=== PATIENT | female | born 1990 | race Hispanic/Latino ===

== ENCOUNTER 2018-04-03 17:02 | Emergency (ER) | payer BC ==
[2018-04-03] MEDS ORDERED: ALBUTEROL 2.5 MG/3 ML NEB SOL ONE (17:23)
[2018-04-03] MEDS ORDERED: IPRATROPIUM BROM 0.5MG/2.5ML ONE (17:24)
[2018-04-03 19:00] LABS: Protime INR 0.98
[2018-04-03 19:02] LABS: Absolute Lymphocytes (CBC) 1.6 K/uL (0.7-4.9); Absolute Monocytes 0.4 K/uL (0.1-1.3); Absolute Neutrophil 4.6 K/uL (1.8-8.0); Basophils % 0.6 % (0-1.3); Eosinophils % 0.3 % (0-4.4); Hematocrit 35.2 % (36.0-45.0); Lymphocytes % 24.1 % (15.3-44.8); MCH 31.4 pg (27.0-35.0); MCV 87.8 fL (80-100); MPV 9.6 fL (7.6-11.3); Monocytes % 6.5 % (3.3-12.3); RBC Red Blood Cell Count 4.01 M/uL (3.86-4.86)
[2018-04-03 19:07] LABS: Glucose Level 118 mg/dL (65-120)
[2018-04-03 19:13] LABS: ALT/SGPT 12 IU/L (10-60); AST/SGOT 20 IU/L (10-42); Albumin 3.4 g/dL (3.2-5.5); Alkaline Phosphatase 67 IU/L (42-121); BUN Blood Urea Nitrogen 9 mg/dL (6-20); Bilirubin Direct < 0.1 mg/dL (0-0.2); Bilirubin Total 0.2 mg/dL (0.3-1.2); Creatine Phosphokinase 50 IU/L (22-269); Magnesium 1.6 mg/dL (1.8-2.5); Protein, Total 6.9 g/dL (6.0-8.3)
[2018-04-03 19:17] LABS: CKMB Creatine Kinase MB 1.1 ng/ml (0.3-4.0)
[2018-04-03 19:18] LABS: Bicarbonate 22 mEq/L (21-31); Sodium Level 136 mEq/L (135-145)
--- NOTE | 2018-04-03 19:49 | RAD REPORT ---
EXAM DESCRIPTION: CT - Chest For Pe Angio - 04/03/2018 7:41 pm CLINICAL HISTORY: Shortness of breath for 1 hour. Chest pain COMPARISON: None. TECHNIQUE: Dynamically enhanced axial 3 mm thick images of the chest were obtained during administra tion of <100> mL Isovue 370 IV contrast. Coronal and oblique reconstruction images were generated and reviewed. Exam utilizes a protocol for optimal evaluation of pulmonary arterial tree. Maximum intensity projections 3D imaging was utilized All CT scans are performed using dose optimization technique as appropriate and may include automated exposure control or mA/KV adjustment according to patient size. FINDINGS: A pulmonary embolus is not seen. A thoracic aortic aneurysm is not noted. A pleural effusion is not seen. A pericardial effusion is not seen. A lung consolidation is not present. IMPRESSION: Negative for a pulmonary embolism.
[2018-04-03] MEDS ORDERED: METHYLPREDNISOLONE 125 MG INJ ONE (20:05)
[2018-04-03] MEDS ORDERED: POTASSIUM 25 MEQ EFFERV TAB ONE (20:05)
[2018-04-03] MEDS ORDERED: MAGNESIUM SULFATE 1 gm IVPB 1 GM/100 ML BAG IV ONE (20:05)
[2018-04-03 20:19] LABS: Urine Blood NEGATIVE (NEG); Urine Glucose NEGATIVE (NEG); Urine Protein NEGATIVE (NEG); Urine pH 8.5 (5.0-7.0)
[2018-04-03 20:34] LABS: Urine Amorphous Sediment 1+ /HPF (NONE SEEN); Urine Bacteria <20 /HPF (<20); Urine Culture Reflex Order NOT NEEDED; Urine RBC <5 /HPF (NONE SEEN)
--- NOTE | 2018-04-03 20:48 | ER ---
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 Patient reports SOB is aj not resolved with asthma inhaler. No wheezes noted at this time. Patient reports pain to chest. Tachypneic in triage. Transition of care: patient was not received from another setting of care. Onset of symptoms was April 03, 2018. Risk Assessment: Do you want to hurt yourself or someone else? Patient reports no desire to harm self or others. Care prior to arrival: None. 17:10 Method Of Arrival: Ambulatory aj 17:10 Acuity: ESTELLA 2 aj 19:18 Initial Sepsis Screen: Does the patient meet any 2 criteria? No. Patient's initial ao sepsis screen is negative. Does the patient have a suspected source of infection? No. Patient's initial sepsis screen is negative. Triage Assessment: 17:11 General: Appears in no apparent distress. uncomfortable, Behavior is anxious. Pain: aj Complains of pain in chest. Neuro: Level of Consciousness is awake, alert, obeys commands, Oriented to person, place, time, situation, Appropriate for age. Respiratory: Reports shortness of breath at rest on exertion Airway is patent Respiratory effort is even, unlabored, Respiratory pattern is tachypnea Onset: The symptoms/episode began/occurred just prior to arrival, the patient has moderate shortness of breath. Derm: Skin is intact, is healthy with good turgor, Skin is pink, warm \T\ dry. normal. 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 - Social history:: Smoking status: Patient/guardian denies using tobacco. - Ebola Screening: : Patient negative for fever greater than or equal to 101.5 degrees Fahrenheit, and additional compatible Ebola Virus Disease symptoms Patient denies exposure to infectious person Patient denies travel to an Ebola-affected area in the 21 days before illness onset No symptoms or risks identified at this time. Screenin:18 Abuse screen: Denies threats or abuse. Denies injuries from another. Nutritional ao screening: No deficits noted. Tuberculosis screening: No symptoms or risk factors identified. Fall Risk None identified. Assessment: 19:14 General: Appears in no apparent distress. comfortable, Behavior is calm, anxious. Pain: ao Complains of pain in chest. Neuro: Level of Consciousness is awake, alert, obeys commands, Oriented to person, place, time, situation, Appropriate for age Moves all extremities. Speech is normal, Facial symmetry appears normal. Cardiovascular: Capillary refill < 3 seconds Patient's skin is warm and dry. Pulses are all present. Rhythm is regular. Respiratory: Airway is patent Respiratory effort is even, unlabored, Respiratory pattern is regular, symmetrical, Breath sounds are clear bilaterally. Respiratory: Reports shortness of breath at rest labored breathing pain with cough pain with movement pain with respiration. GI: Abdomen is . : No signs and/or symptoms were reported regarding the genitourinary system. :. EENT: No signs and/or symptoms were reported regarding the EENT system. Derm: Skin is intact, Skin is pink, warm \T\ dry. Skin temperature is warm. Musculoskeletal: Circulation, motion, and sensation intact. Range of motion: intact in all extremities. 20:38 Reassessment: Patient appears in no apparent distress at this time. Patient and/or ao family updated on plan of care and expected duration. Pain level reassessed. Patient is alert, oriented x 3, equal unlabored respirations, skin warm/dry/pink. 21:19 Reassessment: Waiting on magnesium to be complete before discharging patient. ao 22:03 Reassessment: Dc Instructions given to patient . Patient agree with the POC and to ao follow up with PCP. Vital Signs: 17:11 BP 123 / 78; Pulse 91; Resp 42; Temp 98.8; Pulse Ox 100% on R/A; Weight 76.66 kg; aj Height 5 ft. 2 in. (157.48 cm); 19:01 BP 98 / 56; Pulse 100; Resp 19; Pulse Ox 100% ; ao 20:36 BP 105 / 71; Pulse 97; Resp 18; Pulse Ox 100% ; Pain 0/10; ao 21:45 BP 106 / 86; Pulse 101; Resp 18; Pulse Ox 100% on R/A; Pain 0/10; ao 17:11 Body Mass Index 30.91 (76.66 kg, 157.48 cm) aj 17:11 Provider notified of vital signs aj ED Course: 17:06 Patient arrived in ED. sb2 17:06 None, None is Private Physician. sb2 17:11 Triage completed. aj 17:11 Arm band placed on left wrist. Patient placed in an exam room. aj 17:13 Grady Mckinney, SUPERVISOR ASSEMBLY STOCK is PHCP. pm1 17:13 Kurtis Wagner MD is Attending Physician. pm1 17:20 Yesenia Vásquez, RENATA is Primary Nurse. kr2 18:46 Inserted saline lock: 20 gauge in right antecubital area, using aseptic technique. aj Blood collected. 19:18 No provider procedures requiring assistance completed. ao 19:19 Patient has correct armband on for positive identification. Pulse ox on. NIBP on. ao 19:27 CT completed. Patient moved to CT via stretcher. Patient moved back from CT. cw1 19:41 CT Chest For PE Angio In Process Unspecified. EDMS 20:13 Urine Microscopic Only Sent. ao 22:03 IV discontinued, intact, bleeding controlled, No redness/swelling at site. Pressure ao dressing applied. Administered Medications: 17:25 Drug: Albuterol - atroVENT (3:1) (2.5 mg - 0.5 mg) 3 ml Route: Nebulizer; kr2 20:13 Drug: Magnesium Sulfate 1 grams Route: IVPB; Infused Over: 1 hrs; Site: right ao antecubital; 22:02 Follow up: IV Status: Completed infusion ao 20:13 Drug: SOLU-Medrol 125 mg Route: IVP; Site: right antecubital; ao 21:44 Follow up: Response: No adverse reaction ao 20:13 Drug: Potassium Effervescent Tablet 50 mEq Route: PO; ao 21:44 Follow up: Response: No adverse reaction ao Outcome: 20:47 Discharge ordered by . pm1 22:03 Discharged to home ambulatory. ao 22:03 Condition: stable 22:03 Discharge instructions given to patient, Instructed on discharge instructions, follow up and referral plans. Demonstrated understanding of instructions, follow-up care, medications, Prescriptions given X 1. 22:04 Patient left the ED. ao Signatures: Dispatcher [employer] EDKyleigh Hdez RN Lisa Clark cw1 Scout Acuna RN RN ao Marinas, Patrick, SUPERVISOR ASSEMBLY STOCK SUPERVISOR ASSEMBLY STOCK pm1 Yesenia Vásquez RN RN kr2 Alexandra Rodriguez sb2
--- NOTE | 2018-04-03 20:48 | EDPHYS ---
Physician Documentation [facility] Name: Billie Allen Age: 27 yrs Sex: Female : 1990 Arrival Date: 04/03/2018 Time: 17:06 Bed 26 Private MD: None, None ED Physician Kurtis Wagner HPI: 04/03 18:00 This 27 yrs old Female presents to ER via Ambulatory with complaints of pm1 Shortness Of Breath. 18:00 The patient has shortness of breath at rest. pm1 18:00 Onset: The symptoms/episode began/occurred 1 hour prior to arrival. Duration: The pm1 symptoms are continuous. Associated signs and symptoms: Pertinent positives: productive cough, Pertinent negatives: chest pain, fever, nausea, vomiting. Severity of symptoms: in the emergency department the symptoms are worse Pain is currently a 0 / 10. The patient has experienced similar episodes in the past, multiple times, but today's symptoms are worse, not resolving with breathing treatment at home. The patient has not recently seen a physician. Patient is 27 weeks and 6 days . Patient with history of asthma. Patient typically is able to resolve her asthma flare ups with albuterol at home but it did not help this time. 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 - Social history:: Smoking status: Patient/guardian denies using tobacco. - Ebola Screening: : Patient negative for fever greater than or equal to 101.5 degrees Fahrenheit, and additional compatible Ebola Virus Disease symptoms Patient denies exposure to infectious person Patient denies travel to an Ebola-affected area in the 21 days before illness onset No symptoms or risks identified at this time. ROS: 18:00 Constitutional: Negative for fever, chills, and weight loss, Eyes: Negative for injury, pm1 pain, redness, and discharge, ENT: Negative for injury, pain, and discharge, Neck: Negative for injury, pain, and swelling, Cardiovascular: Negative for chest pain, palpitations, and edema. 18:00 Abdomen/GI: Negative for abdominal pain, nausea, vomiting, diarrhea, and constipation, Back: Negative for injury and pain, : Negative for injury, bleeding, discharge, and swelling, MS/Extremity: Negative for injury and deformity, Skin: Negative for injury, rash, and discoloration, Neuro: Negative for headache, weakness, numbness, tingling, and seizure. 18:00 Respiratory: Positive for cough, shortness of breath, Negative for wheezing. Exam: 18:00 Constitutional: This is a well developed, well nourished patient who is awake, alert, pm1 and in no acute distress. Head/Face: Normocephalic, atraumatic. Eyes: Pupils equal round and reactive to light, extra-ocular motions intact. Lids and lashes normal. Conjunctiva and sclera are non-icteric and not injected. Cornea within normal limits. Periorbital areas with no swelling, redness, or edema. ENT: Nares patent. No nasal discharge, no septal abnormalities noted. Tympanic membranes are normal and external auditory canals are clear. Oropharynx with no redness, swelling, or masses, exudates, or evidence of obstruction, uvula midline. Mucous membranes moist. Neck: Trachea midline, no thyromegaly or masses palpated, and no cervical lymphadenopathy. Supple, full range of motion without nuchal rigidity, or vertebral point tenderness. No Meningismus. Chest/axilla: Normal chest wall appearance and motion. Nontender with no deformity. No lesions are appreciated. Cardiovascular: Regular rate and rhythm with a normal S1 and S2. No gallops, murmurs, or rubs. Normal PMI, no JVD. No pulse deficits. 18:00 Back: No spinal tenderness. No costovertebral tenderness. Full range of motion. Skin: Warm, dry with normal turgor. Normal color with no rashes, no lesions, and no evidence of cellulitis. MS/ Extremity: Pulses equal, no cyanosis. Neurovascular intact. Full, normal range of motion. 18:00 Respiratory: the patient does not display signs of respiratory distress, Respirations: tachypnea, Breath sounds: are clear throughout. 18:00 Abdomen/GI: Inspection: gravid appearance, is noted, Bowel sounds: normal, Palpation: abdomen is soft and non-tender. 18:00 Neuro: Orientation: is normal, Motor: moves all fours, strength is normal, strength is 5/5 in all extremities. Vital Signs: 17:11 BP 123 / 78; Pulse 91; Resp 42; Temp 98.8; Pulse Ox 100% on R/A; Weight 76.66 kg; aj Height 5 ft. 2 in. (157.48 cm); 19:01 BP 98 / 56; Pulse 100; Resp 19; Pulse Ox 100% ; ao 20:36 BP 105 / 71; Pulse 97; Resp 18; Pulse Ox 100% ; Pain 0/10; ao 21:45 BP 106 / 86; Pulse 101; Resp 18; Pulse Ox 100% on R/A; Pain 0/10; ao 17:11 Body Mass Index 30.91 (76.66 kg, 157.48 cm) aj 17:11 Provider notified of vital signs aj MDM: 17:18 Patient medically screened. pm1 18:34 ED course: Patient reports breathing treatment has improved her symptom but does pm1 continue to feel short of breath. Patient tachypneic and feels that she needs to breath through her mouth to get enough oxygen. Breath sounds are clear and patient is moving air. Discussed patient presentation with my attending and will order CT chest to rule out PE. 21:00 Data reviewed: vital signs. Data interpreted: Pulse oximetry: on room air is 100 %. pm1 Interpretation: normal. Counseling: I had a detailed discussion with the patient and/or guardian regarding: the historical points, exam findings, and any diagnostic results supporting the discharge/admit diagnosis, lab results, radiology results, the need for outpatient follow up, to return to the emergency department if symptoms worsen or persist or if there are any questions or concerns that arise at home. 04/03 18:30 Order name: Basic Metabolic Panel; Complete Time: 19:28 pm04/03 18:30 Order name: BNP; Complete Time: 19:28 pm04/03 18:30 Order name: CBC with Diff; Complete Time: :28 pm04/03 18:30 Order name: Ckmb; Complete Time: :28 pm04/03 18:30 Order name: CPK; Complete Time: 19:28 pm04/03 18:30 Order name: LFT's; Complete Time: 19:28 pm04/03 18:30 Order name: Magnesium; Complete Time: 19:28 pm04/03 18:30 Order name: PT-INR; Complete Time: 19:28 pm1 04/03 18:30 Order name: Ptt, Activated; Complete Time: 19:28 pm1 04/03 18:30 Order name: Troponin (emerg Dept Use Only); Complete Time: 19:28 pm1 04/03 20:01 Order name: Urine Microscopic Only pm1 04/03 20:01 Order name: Urine Microscopic Only; Complete Time: 20:49 EDMS 04/03 20:18 Order name: Urine Dipstick--Ancillary (enter results); Complete Time: 20:49 eb 04/03 20:18 Order name: Urine --Ancillary (enter results); Complete Time: 20:49 eb 04/03 18:26 Order name: CT Chest For PE Angio; Complete Time: 19:50 pm1 04/03 18:26 Order name: IV Saline Lock; Complete Time: 18:46 pm1 04/03 18:30 Order name: EKG; Complete Time: 18:31 pm1 04/03 18:30 Order name: Cardiac monitoring; Complete Time: 19:52 pm1 04/03 18:30 Order name: EKG - Nurse/Tech; Complete Time: 19:52 pm1 04/03 18:30 Order name: Labs collected and sent; Complete Time: 18:46 pm1 04/03 18:30 Order name: O2 Per Protocol; Complete Time: 19:52 pm1 04/03 18:30 Order name: O2 Sat Monitoring; Complete Time: 19:52 pm1 04/03 18:30 Order name: Urine Dipstick-Ancillary (obtain specimen); Complete Time: 20:14 pm1 04/03 20:21 Order name: Urine --Ancillary (enter results); Complete Time: 20:49 eb Administered Medications: 17:25 Drug: Albuterol - atroVENT (3:1) (2.5 mg - 0.5 mg) 3 ml Route: Nebulizer; kr2 20:13 Drug: Magnesium Sulfate 1 grams Route: IVPB; Infused Over: 1 hrs; Site: right ao antecubital; 22:02 Follow up: IV Status: Completed infusion ao 20:13 Drug: SOLU-Medrol 125 mg Route: IVP; Site: right antecubital; ao 21:44 Follow up: Response: No adverse reaction ao 20:13 Drug: Potassium Effervescent Tablet 50 mEq Route: PO; ao 21:44 Follow up: Response: No adverse reaction ao Disposition: 19:09 Co-signature as Attending Physician, Kurtis Wagner MD. Disposition: 04/03/18 20:47 Discharged to Home. Impression: Unspecified asthma with (acute) exacerbation. - Condition is Stable. - Discharge Instructions: Asthma, Adult, How to Use an Inhaler. - Prescriptions for Prednisone 20 mg Oral Tablet - take 3 tablet by ORAL route once daily for 5 days; 15 tablet. - Work release form, Medication Reconciliation Form, Thank You Letter form. - Follow up: Emergency Department; When: As needed; Reason: Worsening of condition. Follow up: Private Physician; When: 2 - 3 days; Reason: Recheck today's complaints, Continuance of care, Re-evaluation by your physician. - Problem is new. - Symptoms have improved. Signatures: Dispatcher [employer] EDMS Kyleigh Magaña RN Scout Houston RN Grady Montaño, WINE CELLAR STOCK CLERK WINE CELLAR STOCK CLERK pm1 Kurtis Wagner MD MD Yesenia Vásquez RN RN kr2 Corrections: (The following items were deleted from the chart) 21:44 17:20 FHT's ordered. pm1 ao 22:04 20:47 04/03/2018 20:47 Discharged to Home. Impression: Unspecified asthma with (acute) ao exacerbation. Condition is Stable. Forms are Medication Reconciliation Form, Thank You Letter, Antibiotic Education, Prescription Opioid Use. Follow up: Emergency Department; When: As needed; Reason: Worsening of condition. Follow up: Private Physician; When: 2 - 3 days; Reason: Recheck today's complaints, Continuance of care, Re-evaluation by your physician. Problem is new. Symptoms have improved. pm1
[2018-04-03 22:29] VITALS: TEMP 98.8; O2SAT 100
[2018-04-03 22:33] VITALS: BP 106/86
--- NOTE | 2018-04-04 06:40 | EKG ---
Test Date: 2018-04-03 Test Time: 19:09:22 Ground Support Equipment Mechanic: ASTER MEASUREMENT RESULTS: Intervals: Rate: 97 WV: 126 QRSD: 78 QT: 338 QTc: 429 [place]: P: 32 WV: 126 QRS: 33 T: 10 INTERPRETIVE STATEMENTS: Normal sinus rhythm Normal ECG No previous ECG available for comparison Electronically Signed On 04-04-18 06:39:36 CDT by Jimi Matos
== END 2018-04-03 22:04 | disposition home or self-care (01) ==
LOC: ER 17:02
DX: J45.901 Unspecified asthma with (acute) exacerbation (principal); Z3A.27 27 weeks gestation of pregnancy; Z88.0 Allergy status to penicillin
CPT/HCPCS: 36415; 71275; 80048; 80076; 81003; 81015; 81025; 82550; 82553; 83735; 83880; 84484; 85025; 85610; 85730; 93005; 94640; 96365; 96366; 96375; 99285; J2930; J3475; Q9967

== ENCOUNTER 2020-01-01 00:27 | Emergency (ER) | payer BC ==
--- OUTSIDE RECORDS SUMMARY | 2020-01-01 00:30 | XMS REPORT ---
:1990 [facility] Address [address] [place] [address] Dr. Lou [address] [place] [id number] Care Team Providers Name Role Phone Unavailable Unavailable Unavailable Problems This patient has no known problems. Allergies, Adverse Reactions, Alerts This patient has no known allergies or adverse reactions. Medications This patient has no known medications.
--- OUTSIDE RECORDS SUMMARY | 2020-01-01 00:30 | XMS REPORT ---
:1990 Author Organization [employer] Care Team Providers Name Role Phone Conner [facility] Provider Role Unavailable Allergies, Adverse Reactions, Alerts Substance Reaction Event Type penicillin hives Drug Allergy Problems Problem Type Condition Code Onset Dates Condition Status Assessment Refused influenza vaccine Z28.21 Active Problem Allergic rhinitis, unspecified J30.9 Active seasonality, unspecified trigger Problem Mild intermittent asthma without J45.20 Active complication Assessment Allergic rhinitis, unspecified J30.9 Active seasonality, unspecified trigger Assessment Mild intermittent asthma without J45.20 Active complication Assessment Well adult on routine health check Z00.00 Active Assessment Adult BMI 29.0-29.9 kg/sq m Z68.29 Active Medications No Known Medications Results No Known Results Summary Purpose [employer] Submission
--- OUTSIDE RECORDS SUMMARY | 2020-01-01 00:30 | XMS REPORT ---
:1990 Author Organization [employer] Care Team Providers Name Role Phone Prieto, [facility] Provider Role Unavailable Allergies, Adverse Reactions, Alerts Substance Reaction Event Type penicillin hives Drug Allergy Problems Problem Type Condition Code Onset Dates Condition Status Problem Allergic rhinitis, unspecified J30.9 Active seasonality, unspecified trigger Problem Mild intermittent asthma without J45.20 Active complication Assessment Allergic rhinitis, unspecified J30.9 Active seasonality, unspecified trigger Medications No Known Medications Results No Known Results Summary Purpose [employer] Submission
[2020-01-01] MEDS ORDERED: propofoL 200 MG/20 ML VIAL IV ONE (00:40)
[2020-01-01] MEDS ORDERED: ONDANSETRON 4 MG/2 ML VIAL ONE (00:42)
[2020-01-01] MEDS ORDERED: NA CHLORIDE 0.9% 1,000 ML ONE (00:42)
[2020-01-01] MEDS ORDERED: FENTANYL CITR 100 MCG/2 ML ONE (00:42)
--- NOTE | 2020-01-01 01:50 | ER ---
Nurse's Notes [facility] Name: Billie Allen Age: 29 yrs Sex: Female : 1990 Arrival Date: 01/01/2020 Time: 00:26 Bed 6 Private MD: Diagnosis: Trimalleolar fracture of lower leg;Dislocation of right ankle joint Presentation: 12/31 00:31 Ebola Screen: No symptoms or risks identified at this time. Initial Sepsis Screen: Does ea the patient meet any 2 criteria? No. Patient's initial sepsis screen is negative. Does the patient have a suspected source of infection? No. Patient's initial sepsis screen is negative. Risk Assessment: Do you want to hurt yourself or someone else? Patient reports no desire to harm self or others. 00:31 Acuity: ESTELLA 3 ea 00:31 Chief complaint: EMS states: Reports she stepped off a curb and twisted her right ea ankle, right ankle body deformity noted. Coronavirus screen: The patient has NOT traveled to a country currently being monitored by the [facility] within the last 14 days. 00:31 Method Of Arrival: EMS: [facility] ea Historical: - Allergies: 01:26 PENICILLINS; ea - Home Meds: 01:26 Albuterol Inhl [Active]; ea - PMHx: 01:26 Asthma; ea - Immunization history:: Adult Immunizations up to date. - Social history:: Smoking status: Patient denies any tobacco usage or history of. Screenin:30 Abuse screen: Denies threats or abuse. Nutritional screening: No deficits noted. ea Tuberculosis screening: No symptoms or risk factors identified. Fall Risk IV access (20 points). Assessment: 00:31 General: Appears in no apparent distress. Behavior is appropriate for age. Pain: ea Complains of pain in right ankle. Neuro: Level of Consciousness is awake, alert, obeys commands, Oriented to person, place, time, situation. Cardiovascular: Patient's skin is warm and dry. Respiratory: No deficits noted. Musculoskeletal: Bony deformity noted of right ankle. 01:18 Reassessment: verbal order obtained for Fentanyl [address] De La Cruz, medication ea administered, pt tolerated well. 01:55 Reassessment: Patient and/or family updated on plan of care and expected duration. Pain ea level reassessed. Patient is alert, oriented x 3, equal unlabored respirations, skin warm/dry/pink. 02:47 Reassessment: Patient and/or family updated on plan of care and expected duration. Pain ea level reassessed. Patient is alert, oriented x 3, equal unlabored respirations, skin warm/dry/pink. Discharge instruction given to patient, verbalized the understanding of instruction. Pt left ED via wheelchair accompanied by family. Vital Signs: 00:31 BP 112 / 63; Pulse 87; Resp 18; Temp 97.6; Pulse Ox 100% on R/A; ea 00:33 Weight 77.11 kg; la1 00:40 Weight 77.11 kg; Height 5 ft. 2 in. (157.48 cm); ea 01:00 BP 132 / 87; Pulse 100; Resp 18; Temp 97.3; Pulse Ox 100% ; ea 02:35 BP 107 / 71; Pulse 78; Resp 18; Temp 98; Pulse Ox 100% ; ea 00:40 Body Mass Index 31.09 (77.11 kg, 157.48 cm) ea ED Course: 00:26 Patient arrived in ED. sg 00:27 Harris Gomez FNP-C [facility]. la1 00:27 Rakesh De La Cruz MD is Attending Physician. la1 00:30 Alisa Harris, RENATA is Primary Nurse. ea 00:30 Inserted saline lock: 20 gauge in right antecubital area, using aseptic technique. ea 00:32 Triage completed. ea 00:32 Arm band placed on right wrist. Patient placed in an exam room, on a stretcher, on ea pulse oximetry. 00:32 Patient has correct armband on for positive identification. Placed in gown. Bed in low ea position. Call light in reach. Side rails up X2. 00:52 Ankle Right 2 View In Process Unspecified. EDMS 01:13 No provider procedures requiring assistance completed. Assist provider with reduction ea of right ankle. 01:37 Ankle Right 2 View XRAY In Process Unspecified. EDMS 01:48 Yehuda Munoz MD is Referral Physician. la1 02:31 IV discontinued, intact, bleeding controlled, No redness/swelling at site. Pressure ea dressing applied. Administered Medications: 00:58 Drug: fentaNYL (PF) 50 mcg Route: IVP; Site: right antecubital; ea 01:15 Follow up: Response: No adverse reaction ea 00:58 Drug: Zofran (Ondansetron) 4 mg Route: IVP; Site: right antecubital; ea 01:15 Follow up: Response: No adverse reaction ea 00:58 Drug: NS 0.9% 1000 ml Route: IV; Rate: 1000 ml; Site: right antecubital; ea 02:42 Follow up: Response: No adverse reaction; IV Status: Completed infusion; IV Intake: ea 900ml 01:13 Drug: Propofol 0.5 mg/kg Route: IVP; Site: right antecubital; ea 01:20 Follow up: Response: No adverse reaction ea Intake: 02:42 IV: 900ml; Total: 900ml. ea Outcome: 01:49 Discharge ordered by laSamir 02:42 Condition: stable ea 02:42 Discharge instructions given to patient, Instructed on discharge instructions, follow up and referral plans. medication usage, Demonstrated understanding of instructions, follow-up care, medications, Prescriptions given X 1. 02:46 Discharged to home ambulatory, with significant other. ea 02:49 Patient left the ED. ea Signatures: Dispatcher [employer] EDMS Yehuda Cline RN RN sg Harris Gomez, EKG MANAGER-C EKG MANAGER-Cla1 Alisa Harris RN RN ea Corrections: (The following items were deleted from the chart) 02:41 02:31 No provider procedures requiring assistance completed. ea ea
--- NOTE | 2020-01-01 01:50 | EDPHYS ---
Physician Documentation [facility] Name: Billie Allen Age: 29 yrs Sex: Female : 1990 Arrival Date: 01/01/2020 Time: 00:26 Bed 6 Private MD: ED Physician Rakesh De La Cruz HPI: 12/31 00:29 This 29 yrs old Female presents to ER via Unassigned with complaints of Ankle la1 Injury. 00:29 The patient presents with a deformity. The complaints affect the right ankle. Onset: la1 The symptoms/episode began/occurred just prior to arrival. Context: The problem was sustained outdoors, resulted from a mis-step by the patient, The patient is unable to bear weight. The patient is not able to ambulate. Associated signs and symptoms: Pertinent negatives: numbness, tingling. Severity of symptoms: At their worst the symptoms were severe. The patient has not experienced similar symptoms in the past. Historical: - Allergies: : PENICILLINS; ea - Home Meds: : Albuterol Inhl [Active]; ea - PMHx: : Asthma; ea - Immunization history:: Adult Immunizations up to date. - Social history:: Smoking status: Patient denies any tobacco usage or history of. ROS: 00:29 Constitutional: Negative for fever, chills, and weight loss, Eyes: Negative for injury, la1 pain, redness, and discharge, Cardiovascular: Negative for chest pain, palpitations, and edema, Respiratory: Negative for shortness of breath, cough, wheezing, and pleuritic chest pain, Abdomen/GI: Negative for abdominal pain, nausea, vomiting, diarrhea, and constipation, Back: Negative for injury and pain. 00:29 Skin: Negative for injury, rash, and discoloration. 00:29 MS/extremity: Positive for deformity, of the right ankle. Exam: 00:30 Constitutional: This is a well developed, well nourished patient who is awake, alert, la1 and in no acute distress. Head/Face: Normocephalic, atraumatic. Chest/axilla: Normal chest wall appearance and motion. Nontender with no deformity. No lesions are appreciated. Cardiovascular: Regular rate and rhythm with a normal S1 and S2. No gallops, murmurs, or rubs. Normal PMI, no JVD. No pulse deficits. Respiratory: Lungs have equal breath sounds bilaterally, clear to auscultation Abdomen/GI: Soft, non-tender, Back: No spinal tenderness. No costovertebral tenderness. Full range of motion. Skin: Warm, dry with normal turgor. Normal color with no rashes, no lesions, and no evidence of cellulitis. 00:30 Musculoskeletal/extremity: Extremities: noted in the right ankle: deformity, Pulses: noted to be 3+ in the right posterior tibial artery and left posterior tibial artery, Compartment Syndrome exam of affected extremity: no numbness, no tingling, no sensation deficit, no palor, no weak pulses. Vital Signs: 00:31 BP 112 / 63; Pulse 87; Resp 18; Temp 97.6; Pulse Ox 100% on R/A; ea 00:33 Weight 77.11 kg; la1 00:40 Weight 77.11 kg; Height 5 ft. 2 in. (157.48 cm); ea 01:00 BP 132 / 87; Pulse 100; Resp 18; Temp 97.3; Pulse Ox 100% ; ea 02:35 BP 107 / 71; Pulse 78; Resp 18; Temp 98; Pulse Ox 100% ; ea 00:40 Body Mass Index 31.09 (77.11 kg, 157.48 cm) ea Procedures: 01:25 Reduction: of the right ankle, using traction, manipulation, Immobilized with posterior la1 long leg with stirrup. Patient tolerated well. Post reduction film - reveals improved alignment. MDM: 00:27 Patient medically screened. la1 01:45 Data reviewed: vital signs, nurses notes, radiologic studies, I have discussed the la1 patient's presentation/case with the attending Emergency Department Physician;. Data interpreted: Pulse oximetry: on room air is 100 %. Interpretation: normal. Counseling: I had a detailed discussion with the patient and/or guardian regarding: the historical points, exam findings, and any diagnostic results supporting the discharge/admit diagnosis, radiology results, the need for outpatient follow up, a orthopedic surgeon, to return to the emergency department if symptoms worsen or persist or if there are any questions or concerns that arise at home. Response to treatment: the patient's symptoms have markedly improved after treatment, and as a result, I will discharge patient. ED course: neurovascularly intact before and after closed reduction, pt splinted with long leg posterior with stirrup. Suspect pt has a Trimalleolar fracture but at least a bimalleolar fracture is present. Explained to patient that she will need surgery to fix this fracture and needs to see an orthopedic surgeon and maintain no weight bearing until then. No calf pain/tenderness to support a more proximal fibula fx. Cap refill <2 seconds after application of splint,. 01:47 Special discussion: Based on the history and exam findings, there is no indication for la1 further emergent testing or inpatient evaluation. I discussed with the patient/guardian the need to see the orthopedic surgeon for further evaluation of the symptoms. 12/31 00:45 Order name: Ankle Right 2 View EDMS 12/31 01:26 Order name: Ankle Right 2 View XRAY la1 12/31 00:28 Order name: IV; Complete Time: 00:28 la1 12/31 00:28 Order name: Conscious Sedation; Complete Time: 01:58 la1 12/31 00:28 Order name: Conscious Sedation; Complete Time: 01:58 la1 12/31 01:26 Order name: Posterior Leg Splint: with stirrup; Complete Time: 02:13 la1 Administered Medications: 00:58 Drug: fentaNYL (PF) 50 mcg Route: IVP; Site: right antecubital; ea 01:15 Follow up: Response: No adverse reaction ea 00:58 Drug: Zofran (Ondansetron) 4 mg Route: IVP; Site: right antecubital; ea 01:15 Follow up: Response: No adverse reaction ea 00:58 Drug: NS 0.9% 1000 ml Route: IV; Rate: 1000 ml; Site: right antecubital; ea 02:42 Follow up: Response: No adverse reaction; IV Status: Completed infusion; IV Intake: ea 900ml 01:13 Drug: Propofol 0.5 mg/kg Route: IVP; Site: right antecubital; ea 01:20 Follow up: Response: No adverse reaction ea Disposition: 06:53 Co-signature as Attending Physician, Rakesh De La Cruz MD I agree with the assessment and tw4 plan of care. Disposition: 01/01/20 01:49 Discharged to Home. Impression: Trimalleolar fracture of lower leg, Dislocation of right ankle joint. - Condition is Stable. - Discharge Instructions: Crutch Use, [id number], Ankle Fracture, [id number], Closed Reduction for Ankle Fracture or Dislocation, Complex Ankle Fracture. - Prescriptions for Tylenol- Codeine #3 300-30 mg Oral Tablet - take 2 tablet by ORAL route every 6 hours As needed; 30 tablet. - Medication Reconciliation Form, Thank You Letter, Prescription Opioid Use form. - Follow up: Yehuda Munoz MD; When: 2 - 3 days; Reason: Further diagnostic work-up, Recheck today's complaints, Continuance of care, Re-evaluation by your physician. Follow up: Emergency Department; When: As needed; Reason: Worsening of condition, worsening pain. - Problem is new. - Symptoms have improved. Signatures: Dispatcher [employer] EDFL Harris Gomez, LINE PILOT-C LINE PILOT-Cla1 Alisa Harris, RN RN Rakesh Baker MD MD tw4 Corrections: (The following items were deleted from the chart) 00:46 00:28 Ankle Right 3 View+RAD.RAD.BRZ ordered. [facility] EDFL 02:46 01:50 Crutches ordered. la1 ea 02:49 01:49 01/01/2020 01:49 Discharged to Home. Impression: Trimalleolar fracture of lower ea leg; Dislocation of right ankle joint. Condition is Stable. Forms are Medication Reconciliation Form, Thank You Letter, Antibiotic Education, Prescription Opioid Use. Follow up: Yehuda Munoz; When: 2 - 3 days; Reason: Further diagnostic work-up, Recheck today's complaints, Continuance of care, Re-evaluation by your physician. Follow up: Emergency Department; When: As needed; Reason: Worsening of condition, worsening pain. Problem is new. Symptoms have improved. la1
[2020-01-01 02:55] VITALS: O2SAT 100
[2020-01-01 02:58] VITALS: BP 107/71; TEMP 98
--- NOTE | 2020-01-01 09:07 | RAD REPORT ---
EXAM DESCRIPTION: RAD - Ankle Right 2 View - 01/01/2020 12:52 am CLINICAL HISTORY: DEFORMITYankle pain, trauma COMPARISON: No comparisons TECHNIQUE: AP and lateral views of the ankle obtained FINDINGS: Right ankle fracture dislocation is present. Talus is dislocated posteriorly. Posterior ma lleolus fracture is present but not well visualized. Medial malleolus is fractured and remains positi oned with the dislocated talus. Distal fibula fracture is present with 40 degree posterior angulation . Talus and calcaneus appear to be intact. Midfoot bones as imaged are intact as well. Soft tissue swelling is present. No foreign body. IMPRESSION: Posterior right ankle fracture dislocation as detailed.
--- NOTE | 2020-01-01 09:08 | RAD REPORT ---
EXAM DESCRIPTION: RAD - Ankle Right 2 View - 01/01/2020 1:36 am CLINICAL HISTORY: post-reduction, right ankle fracture dislocation COMPARISON: Ankle Right 2 View dated 01/01/2020 FINDINGS: Cast material is in place which limits detail. Talus has been reduced to anatomic position. Transverse fracture of the medial malleolus is again not ed with persistent 6 mm distraction. Distal fibula angulation deformity has been corrected. Posterior malleolus remains poorly visualized. Fracture is suspected. IMPRESSION: Reduction of the talus dislocation. Bimalleolar fracture changes are detailed. Trimalleo lar fracture is suspected but posterior malleolus is poorly visualized.
== END 2020-01-01 02:49 | disposition home or self-care (01) ==
LOC: ER 00:27
PROC: 0QSGXZZ Reposition Right Tibia, External Approach (ICD-10-PCS; principal; 2020-01-01)
DX: S82.851A Displaced trimalleolar fracture of right lower leg, initial encounter for closed fracture (principal); S93.04XA Dislocation of right ankle joint, initial encounter; X58.XXXA Exposure to other specified factors, initial encounter; Y93.89 Activity, other specified; Y92.9 Unspecified place or not applicable; Z88.0 Allergy status to penicillin
CPT/HCPCS: 96361; 73600 ×2; 96375; 96374; 99285; 27818; J2704; J3010; J7030; J2405